=== PATIENT | female | born 2000 | race Caucasian/White ===

== ENCOUNTER 2019-05-20 21:49 | Observation (INO) | payer BC ==
[2019-05-20 23:26] LABS: ABS Basophils 0.1 10^3/ul (0-0.2); ABS Eosinophils 0.1 10^3/ul (0-0.6); ABS Lymphocytes 3.1 10^3/ul (1.0-4.8); ABS Monocytes 1.1 10^3/ul (0-0.8); ABS Neutrophils 10.9 10^3/ul (1.5-7.7); Eosinophil % 0.7 %; Hematocrit 39 % (35-47); Hemoglobin 13.7 g/dL (12.0-16.0); Lymphocyte % 20.4 %; Mean Corpuscular HGB Conc 35 g/dL (31-36); Mean Corpuscular Hemoglobin 31 pg (27-31); Mean Corpuscular Volume 89 fL (80-97); Mean Platelet Volume 8.5 fL (7.4-10.4); Platelet Count 284 10^3/uL (150-450); Red Blood Count 4.42 10^6 /uL (3.70-4.87); Red Cell Distribution Width 13 % (10-15); White Blood Count 15.3 10^3/uL (3.5-10.8)
[2019-05-20 23:45] LABS: ALT 13 U/L (7-52); AST 14 U/L (13-39); Albumin 4.4 g/dL (3.2-5.2); Albumin/Globulin Ratio 1.5 (1-3); Alkaline Phosphatase 40 U/L (34-104); Anion Gap 7 mmol/L (2-11); BUN/Creatinine Ratio 21.4 (8-20); Blood Urea Nitrogen 15 mg/dL (6-24); C Reactive Protein 13.04 mg/L (<8.01); CO2 Carbon Dioxide 28 mmol/L (22-32); Calcium 10.1 mg/dL (8.6-10.3); Chloride 104 mmol/L (101-111); EGFR African American 130.4 (>60); EGFR Non-African American 107.8 (>60); Glucose 99 mg/dL (70-100); Potassium 3.7 mmol/L (3.5-5.0); Sodium 139 mmol/L (135-145); Total Protein 7.4 g/dL (6.4-8.9)
[2019-05-20 23:52] LABS: HCG Pregnancy < 0.60 mIU/mL
--- NOTE | 2019-05-21 00:46 | ED ---
Abdominal Pain/Female - HPI Summary HPI Summary: Patient complains of diffuse sudden onset abdominal pain starting at 1 PM today. Pain described as constant, new onset, worse with movement with associated nausea. Patient states earlier temperature of 99.9. Pain rated at 8 /10. Denies fever, cough, sore throat, CP, SOB, V/D, change in urine, change in BM, vaginal symptoms. Medical history is none. Abdominal surgical history is none. - History of Current Complaint Chief Complaint: EDAbdPain Stated Complaint: ABD PAIN PER PT Time Seen by Provider: 05/21/19 00:44 Hx Obtained From: Patient Onset/Duration: Sudden Onset, Lasting Hours Timing: Constant Severity Initially: Moderate Severity Currently: Moderate Pain Intensity: 7 Pain Scale Used: 0-10 Numeric Location: Discrete At: RLQ Radiates: No Character: Dull Aggravating Factor(s): Movement Alleviating Factor(s): Nothing Associated Signs and Symptoms: Positive: Negative Allergies/Adverse Reactions: Allergies Allergy/AdvReac Type Severity Reaction Status Date / Time No Known Allergies Allergy Verified 05/20/19 21:52 PMH/Surg Hx/FS Hx/Imm Hx Endocrine/Hematology History: Denies: Hx Anticoagulant Therapy Cardiovascular History: Denies: Hx Pacemaker/ICD History: Denies: Hx Dialysis Sensory History: Denies: Hx Eye Injury Opthamlomology History: Denies: Hx Eye Prosthesis EENT History: Denies: Hx Deafness Neurological History: Denies: Hx Dementia Infectious Disease History: No Infectious Disease History: Denies: Traveled Outside the [place] in Last 30 Days - Family History Known Family History: Positive: Non-Contributory - Social History Alcohol Use: Occasionally Substance Use Type: Reports: None Smoking Status (MU): Never Smoked Tobacco Review of Systems Constitutional: Negative Eyes: Negative ENT: Negative Cardiovascular: Negative Respiratory: Negative Positive: Abdominal Pain Genitourinary: Negative Musculoskeletal: Negative Skin: Negative Neurological: Negative Psychological: Normal All Other Systems Reviewed And Are Negative: Yes Physical Exam - Summary Physical Exam Summary: Tenderness right lower quadrant, abdominal exam otherwise unremarkable. Triage Information Reviewed: Yes Vital Signs On Initial Exam: Initial Vitals Temp Pulse Resp BP Pulse Ox 98.0 F 97 18 117/73 98 05/20/19 21:52 05/20/19 21:52 05/20/19 21:52 05/20/19 21:52 05/20/19 21:52 Vital Signs Reviewed: Yes Appearance: Positive: Well-Appearing Skin: Positive: Warm Head/Face: Positive: Normal Head/Face Inspection Eyes: Positive: Normal Neck: Positive: Supple Respiratory/Lung Sounds: Positive: Clear to Auscultation Cardiovascular: Positive: Normal Abdomen Description: Positive: Other: Musculoskeletal: Positive: Normal Neurological: Positive: Normal Psychiatric: Positive: Normal AVPU Assessment: Alert - [place] Coma Scale Best Eye Response: 4 - Spontaneous Best Motor Response: 6 - Obeys Commands Best Verbal Response: 5 - Oriented Coma Scale Total: 15 Procedures - Sedation Patient Received Moderate/Deep Sedation with Procedure: No Diagnostics - Vital Signs Vital Signs Temp Pulse Resp BP Pulse Ox 05/20/19 21:52 98.0 F 97 18 117/73 98 - Laboratory Lab Results: Lab Results 05/20/19 05/20/19 Range/Units 23:17 23:20 WBC 15.3 H (3.5-10.8) 10^3/uL RBC 4.42 (3.70-4.87) 10^6 /uL Hgb 13.7 (12.0-16.0) g/dL Hct 39 (35-47) % MCV 89 (80-97) fL MCH 31 (27-31) pg MCHC 35 (31-36) g/dL RDW 13 (10-15) % Plt Count 284 (150-450) 10^3/uL MPV 8.5 (7.4-10.4) fL Neut % (Auto) 70.9 % Lymph % (Auto) 20.4 % [place] % (Auto) 7.4 % Eos % (Auto) 0.7 % Baso % (Auto) 0.6 % Absolute Neuts (auto) 10.9 H (1.5-7.7) 10^3/ul Absolute Lymphs (auto) 3.1 (1.0-4.8) 10^3/ul Absolute Monos (auto) 1.1 H (0-0.8) 10^3/ul Absolute Eos (auto) 0.1 (0-0.6) 10^3/ul Absolute Basos (auto) 0.1 (0-0.2) 10^3/ul Absolute Nucleated RBC 0.0 10^3/ul Nucleated RBC % 0.0 Sodium 139 (135-145) mmol/L Potassium 3.7 (3.5-5.0) mmol/L Chloride 104 (101-111) mmol/L Carbon Dioxide 28 (22-32) mmol/L Anion Gap 7 (2-11) mmol/L BUN 15 (6-24) mg/dL Creatinine 0.70 (0.51-0.95) mg/dL Est GFR ( Amer) 130.4 (>60) Est GFR (Non-Af Amer) 107.8 (>60) BUN/Creatinine Ratio 21.4 H (8-20) Glucose 99 (70-100) mg/dL Calcium 10.1 (8.6-10.3) mg/dL Total Bilirubin 0.40 (0.2-1.0) mg/dL AST 14 (13-39) U/L ALT 13 (7-52) U/L Alkaline Phosphatase 40 (34-104) U/L C-Reactive Protein 13.04 H (<8.01) mg/L Total Protein 7.4 (6.4-8.9) g/dL Albumin 4.4 (3.2-5.2) g/dL Globulin 3.0 (2-4) g/dL Albumin/Globulin Ratio 1.5 (1-3) Lipase 10 L (11.0-82.0) U/L Beta HCG, Quant < 0.60 mIU/mL Result Diagrams: 05/20/19 23:17 05/20/19 23:20 Lab Statement: Any lab studies that have been ordered have been reviewed, and results considered in the medical decision making process. Abdominal Pain Fem Course/Dx - Course Course Of Treatment: Patient complains of diffuse sudden onset abdominal pain starting at 1 PM today. Pain described as constant, new onset, worse with movement with associated nausea. Patient states earlier temperature of 99.9. Pain rated at 8/10. Denies fever, cough, sore throat, CP, SOB, V/D, change in urine, change in BM, vaginal symptoms. Medical history is none. Abdominal surgical history is none. Vital signs within normal limits. WBC 15.3. CRP 13. CT abdomen and pelvis positive for acute appendicitis. Discussed patient with Dr. Rodriguez surgery who agreed to admit patient with further consultation later today. Zosyn administered. - Diagnoses Provider Diagnoses: Appendicitis Discharge ED - Sign-Out/Discharge Documenting (check all that apply): Patient Departure - Discharge Plan Condition: Stable Disposition: ADMITTED TO [facility] - Billing Disposition and Condition Condition: STABLE Disposition: Admitted to [facility]
[2019-05-21 01:02] LABS: Urine Appearance Turbid; Urine Bilirubin Negative (Negative); Urine Blood Negative (Negative); Urine Color Yellow; Urine Glucose Negative (Negative); Urine Ketones Negative (Negative); Urine Nitrite Negative (Negative); Urine Protein Negative (Negative); Urine Specific Gravity 1.023 (1.010-1.030); Urine Urobilinogen Negative (Negative)
[2019-05-21 01:06] LABS: Urine Bacteria Absent (Absent); Urine Red Blood Cell Absent (Absent); Urine Squamous Epithelial Cell Present (Absent); Urine White Blood Cell Trace(0-5/hpf) (Absent)
[2019-05-21] MEDS ORDERED: Iohexol 300* (CONTRAST) 10 ML SDV IV ONE (01:13)
[2019-05-21] MEDS ORDERED: Piperacillin/Tazobac ADVAN(*) 3.375 GM in NS 0.9% 100 ML* 100 ML IVPB ONE (02:21)
[2019-05-21] MEDS ORDERED: Acetaminophen TAB* 325 MG PO PRN (02:22)
[2019-05-21] MEDS ORDERED: Ondansetron INJ* 2 MG/ML VIAL IV PRN ×2 (02:22→15:04)
[2019-05-21] MEDS ORDERED: NS 0.9% 1000 ML** 1,000 ML IV ONE (02:26)
[2019-05-21] MEDS ORDERED: NS 0.9% 1000 ML** 1,000 ML IV SCH (02:30)
[2019-05-21] MEDS ORDERED: Zosyn per Pharmacy* NOTE FOLLOW UP PRN (03:19)
[2019-05-21] MEDS: HYDROmorphone INJ* 0.5 MG/0.5 ML SYRINGE IV SLOW PU PRN ×2 (03:31→11:07)
[2019-05-21] MEDS ORDERED: Piperacillin/Tazobactam VIAL*) 3.375 GM in NS 0.9% 100 ML* 100 ML IVPB SCH (07:30)
--- NOTE | 2019-05-21 09:22 | HP ---
AMENDED REPORT NOW INCLUDES DATE OF ADMISSION AND DESIGNATED COSIGNER CC: [facility] [employer] * ADMISSION HISTORY AND PHYSICAL: DATE OF ADMISSION: 05/21/19 ATTENDING SURGEON: Dr. Donavon Rodriguez.* (DICTATED BY ABBY MONTERO) CHIEF COMPLAINT: Abdominal pain. HISTORY OF PRESENT ILLNESS: This is a 18-year-old generally healthy female who beginning around 1:00 p.m. on 05/20/19 noted onset of upper abdominal pain. She states that it has been steady and sharp and gradually moved to the lower abdomen. At its peak, pain was as high as 9/10. At present, it is 7/10. She admits to nausea, but denies vomiting. She has been anorexic. Her last solid food was 6:30 p.m. last night (pasta). She has not had any diarrhea or change in her bowel movements. She has not had any suspect food ingestion or recent travel history. She has not had any prior abdominal surgeries. Her last menstrual period was a month and a half ago, which is typical for her. Her hCG is less than 0.60. She denies any symptoms. PAST MEDICAL HISTORY: Unremarkable for any chronic or active medical problems. PAST SURGICAL HISTORY: No prior surgeries. CURRENT MEDICATIONS: Oral contraceptives. DRUG ALLERGIES: None. FAMILY HISTORY: Negative for anesthesia problems, bleeding or clotting disorder. SOCIAL HISTORY: The patient is a student at [employer]. She denies the use of tobacco. She drinks alcohol infrequently and also smokes marijuana infrequently. REVIEW OF SYSTEMS: General: No recent constitutional symptoms or acute illnesses, other than noted in the HPI. HEENT: No problems reported. Cardiovascular: No chest pain or palpitations. Respiratory: No history of asthma, chronic cough, or shortness of breath. GI: As above per HPI. : No dysuria or increased frequency. BURGLAR ALARM SUPERINTENDENT: No adhesions. Endocrine: No thyroid dysfunction or diabetes. PHYSICAL EXAMINATION GENERAL: Well-nourished, well-developed female, in no acute distress. VITAL SIGNS: Height 5 feet 5 inches, weight 130. Temperature 100.7, blood pressure 94/36; down from 130/79, pulse ranging from 90s up to 104, respirations 16 to 20, room air saturation 98%. HEENT: Pupils are equal, round, and reactive. EOMs intact. No conjunctival pallor. Oropharynx: Teeth in good repair. No intraoral lesions. NECK: No lymphadenopathy, thyromegaly, or masses. LUNGS: Clear to auscultation. No wheezes. HEART: Regular rate and rhythm. Mildly tachycardic. No murmur noted. ABDOMEN: Bowel sounds present. Flat, nondistended, soft, though with firmness in the right lower quadrant. Diffuse mild tenderness with area of concentrated tenderness at McBurney's point. Again, some mild guarding as noted above. No generalized peritoneal signs. GENITALIA: Not done. RECTAL: Not done. BACK: No spinous process or CVA tenderness. EXTREMITIES: No edema. NEUROLOGICAL: Grossly intact. SKIN: Warm and dry. No suspicious rashes or lesions. DIAGNOSTIC STUDIES/LAB DATA: White blood cell count 15,300, hemoglobin 13.7. CRP mildly elevated at 13. Lipase and liver function tests are normal. hCG is less than 0.60. Urinalysis was unremarkable. CT with IV contrast only shows an enlarged appendix measuring up to 1.4 cm in diameter with an appendicolith present and some mild periappendiceal stranding. No evidence of abscess. IMPRESSION: Acute appendicitis. PLAN: Laparoscopic appendectomy pending review of exam and plan by attending surgeon. ABBY MONTERO [id number]/[facility] #: [id number] MTDD
[2019-05-21] MEDS ORDERED: Famotidine IV* 10 MG/ML 2 ML (20 mg) IV ONE (10:02)
--- NOTE | 2019-05-21 12:02 | PN ---
Progress Note - Progress Note Date of Service: 05/21/19 Note: Patient was admitted early this morning with abdominal pain, nausea, and anorexia. CT scan showed evidence of appendicitis, and WBC was elevated. The patient and her mother are anxious for the surgery to happen as soon as possible. She continues to have right lower quadrant pain. Afebrile. General: Appears tired but no acute distress Abdomen: Soft, right lower quadrant tenderness Neuro: Alert, oriented x3 A&P 18F with acute appendicitis. -OR today for laparoscopic appendectomy. Discussed risks including but not limited to bleeding, infection, or bowel injury. -NPO. IVF.
[2019-05-21] MEDS ORDERED: Acetaminophen TAB* 325 MG PO ONE (12:44)
[2019-05-21] MEDS ORDERED: Buffered Lidocaine 1% SYRIN* 1 ML/SYRINGE INTRADERM ONE (12:44)
[2019-05-21] MEDS ORDERED: Midazolam* 1 MG/ML 2 ML VIAL (2 MG) ONE (12:47)
[2019-05-21] MEDS ORDERED: fentaNYL* 50 MCG/ML 5 ML VIAL (250 MCG VIAL) ONE (12:47)
[2019-05-21] MEDS ORDERED: Propofol* 10 MG/ML 20 ML BTL ONE (12:47)
[2019-05-21] MEDS ORDERED: Lactated Ringers 1000 ML Bag* 1,000 ML IV SCH (13:00)
[2019-05-21] MEDS ORDERED: Bupivacaine 0.25% SDV* 30 ML ONE (14:14)
[2019-05-21] MEDS ORDERED: Rocuronium* 10 MG/ML VIAL ONE (14:20)
[2019-05-21] MEDS ORDERED: Neostigmine Methylsulfate* 3 MG/3 ML SYRINGE ONE (14:21)
[2019-05-21] MEDS ORDERED: Ondansetron INJ* 2 MG/ML VIAL ONE (14:49)
[2019-05-21] MEDS ORDERED: Dexamethasone IV* 4 MG/ML 1 ML (4 MG) ONE (14:49)
[2019-05-21] MEDS ORDERED: Ketorolac INJ* 30 MG/ML 1 ML VIAL ONE (14:49)
[2019-05-21] MEDS ORDERED: HYDROmorphone INJ1* 1 MG/ML SYRINGE ONE (14:49)
[2019-05-21] MEDS ORDERED: Phenylephrine 40 MCG/ML SYRINGE ONE (14:51)
[2019-05-21] MEDS ORDERED: PROCHLORPERAZINE INJ 5 MG/ML 2 ML VIAL IV PRN (15:04)
[2019-05-21] MEDS ORDERED: diPHENhydraMINE IV* 50 MG/ML 1 ml VIAL (BENADRYL) IV PRN (15:04)
[2019-05-21] MEDS ORDERED: oxyCODONE TAB* 5 MG TAB PO PRN (15:04)
[2019-05-21] MEDS ORDERED: HYDROmorphone INJ1* 1 MG/ML SYRINGE IV PRN (15:04)
[2019-05-21] MEDS ORDERED: Naloxone* 0.4 MG/ML 1 ML VIAL IV PRN (15:04)
--- NOTE | 2019-05-21 16:25 | BRIEFOPN ---
Brief Operative/Procedure Note - Operation Details Pre-Op Diagnosis: Acute appendicitis Post-Op Diagnosis: Same Procedures: Laparoscopic appendectomy Surgeon(s)/Proceduralists: Rosie Briscoe MD. Furniture Upholstery Mechanic: Mando MORA student Anesthesia: General Estimated Blood Loss: Minimal Findings: Inflamed, non-perforated appendix Specimen(s)/Culture(s) Description: Appendix Complications: None
[2019-05-21 17:32] VITALS: BP 104/61
--- NOTE | 2019-05-22 10:16 | OP ---
DATE OF OPERATION: 05/21/19 - ROOM #334 DATE OF : 89 SURGEON: Rosie Briscoe MD. FRUIT GRADER OPERATOR: ABBY Ritter student. ANESTHESIA: General. PRE-OP DIAGNOSIS: Acute appendicitis. POST-OP DIAGNOSIS: Acute appendicitis. OPERATIVE PROCEDURE: Laparoscopic appendectomy. ESTIMATED BLOOD LOSS: Minimal. FINDINGS: Inflamed appendix, no evidence of perforation. INDICATION: Dedra is a 18-year-old otherwise healthy female who presented to the ED with abdominal pain, nausea, and anorexia. She reported pain in the right lower quadrant. Her white count was elevated. CT scan also showed evidence of acute appendicitis. She was started on antibiotics, and surgery was discussed. Risks including but not limited to bleeding, infection, or bowel injury were discussed with the patient and her mother. The patient and her mother agreed to proceed with laparoscopic appendectomy. DESCRIPTION OF PROCEDURE: The patient was brought to the OR and placed in the supine position on the OR table. SCDs were placed. She received Zosyn in the preoperative holding area. General anesthesia was administered. The abdomen was prepped and draped in the usual sterile fashion. A timeout confirming the patient's name, date of , and procedure was called. A curvilinear infraumbilical incision was made after injecting 0.25% Marcaine. The incision was taken down to the fascia using blunt dissection and electrocautery. The fascia was elevated using 2 Yumiko clamps and incised transversely with a scalpel. The peritoneum was opened sharply. A Yoly trocar was placed into the abdomen. Pneumoperitoneum to 15 mmHg was achieved. The camera was placed into the abdomen. A 5-mm trocar was placed in the left lower quadrant under direct visualization. Another 5-mm trocar was placed in suprapubic region at the midline under direct visualization. There was murky fluid in the pelvis. There was a ball of omentum in the right lower abdomen, with fibrinous adhesions to the anterior abdominal wall. The base of the appendix could be seen coming off of the cecum and appeared normal. The appendix was seen traveling into the ball of omentum. The omentum was pulled away easily, and the tip of the appendix was seen . The tip of the appendix was enlarged and inflamed. A window in the mesentery was created with blunt dissection. A 45-mm solomon Treynor stapler was used to divide the appendix at the base. A LigaSure was used to divide the mesoappendix. The appendix was placed in a specimen bag and removed from the abdomen. The appendix was sent to Pathology for permanent section. The murky fluid in the pelvis was suctioned out. The staple line was examined and was intact. There was good hemostasis as well. The trocars were removed. The fascia at the umbilical trocar site was closed with an 0 Vicryl [id number] stitch. The skin was closed with running 4-0 Monocryl suture. The 5-mm trocar sites were closed with 4-0 Monocryl. Steri-Strips were placed over the incisions. Needle and sponge counts were correct. The patient was extubated and brought to Recovery in stable condition. [id number]/[facility] #: [id number] ALBARO
--- NOTE | 2019-05-22 11:32 | DS ---
Date of admission: 05/21/2019 Date of discharge: 05/21/2019 Reason for admission: Acute appendicitis Discharge diagnosis acute appendicitis Condition at discharge: Stable Pertinent physical findings: Tenderness to the right lower quadrant. Postoperatively, 3 laparoscopic incisions covered with Steri-Strips. Pertinent lab findings: Laboratory Tests 05/20/19 23:17 WBC 15.3 H Procedure: Laparoscopic appendectomy Hospital course: Dedra Patel is a 18-year-old otherwise healthy female who presented to the ED with right lower quadrant abdominal pain, nausea, and anorexia. She had an elevated white count on admission. Her CT scan showed evidence of acute appendicitis. She was admitted to the surgical service and started on Zosyn. She was brought to the operating room later that day on 05/21/2019 for laparoscopic appendectomy. She recovered in the PACU. Her pain was well controlled, and she was tolerating clear liquids. She was discharged home with her mother. Disposition: Home DISCHARGE INSTRUCTIONS FOLLOWING ABDOMINAL SURGERY OFFICE VISIT: Follow up on 05/28/19. DIET: Resume your regular diet. No restrictions are necessary in regard to your surgery. WOUND CARE: * Shower daily. Wash over incision with regular soap and water. Sit-down baths should be avoided for at least a week. * Leave the skin tapes (steri-strips) on until they begin to loosen and curl on the ends. Then you may gently ease the tapes off, starting at both ends and working toward the incision. * Wear a light gauze bandage over the incision if your clothing irritates the incision. * If the incision is draining, wear a bulkier sterile bandage and change it at least twice daily. As the surgical wound heals, there is likely to be slight swelling, redness, or bruising of the skin. A few days later, the incision may feel lumpy. All of these are normal, and all of them will disappear in time. PLEASE CALL THE OFFICE SOON POSSIBLE IF ANY OF THE FOLLOWING OCCUR: * Sharp increase in pain, redness or swelling of the incision. * Presence of any wound drainage: yellow fluid, bright red blood, or pus (cream- colored drainage). * Fever over 101 degrees orally. ACTIVITY: * Light activity is allowed. * Gradually increase activity within your tolerance. * Walking is the best exercise for you at this time. You may build up to one or two miles a day during the first few weeks following surgery. * Climbing stairs is fine, but go slowly at first. * Do not lift anything heavier than [] pounds for [] weeks. This is an estimation; therefore, use your judgment. * Do not drive a car until all of your pain is gone and your energy level is normal, or until your first office visit, whichever comes last. PAIN MEDICATION CAUTION: Your pain medicine may contain a narcotic (i.e. Codeine ). This can cause drowsiness and constipation. Do not drink alcohol, drive a car or work around machines while taking the medicine. Drink plenty of liquids to help prevent constipation. You may use Milk of Magnesia to relieve constipation. MEDICATIONS: Please see Reconciliation Form for usual medications IF YOU HAVE ANY QUESTIONS OR PROBLEMS PLEASE FEEL FREE TO CALL THE OFFICE AT TO TALK WITH ONE OF OUR DOCTORS OR NURSES. OUR ANSWERING SERVICE IS AVAILABLE 24 HOURS/DAY.
== END 2019-05-21 17:10 | disposition home or self-care (01) ==
LOC: ED 21:49 → SSU 05-21 02:22
PROVIDERS: ADMIT Surgery; ATTEND Surgery
DX: K35.80 Unspecified acute appendicitis (principal); R10.9 Unspecified abdominal pain; Z79.3 Long term (current) use of hormonal contraceptives
CPT/HCPCS: 36415; 74177; 80053; 81003; 81015; 83690; 84702; 85025; 86140; 87086; 96361; 96365; 96375; 96376; 99283; C1776; G0378; J1100; J1170; J1885; J2250; J2405; J2543; J2704; J2710; J3010; J3490; Q9967